=== PATIENT | male | born 1945 | race Caucasian/White ===

== ENCOUNTER 2017-05-07 09:22 | Observation (INO) | payer MEDICARE, OTHER ==
--- NOTE | 2017-05-07 09:31 | ED ---
General Adult HPI - General Stated complaint: near syncope Time Seen by Provider: 05/07/17 09:26 Source: RN notes reviewed, old records reviewed - History of Present Illness Initial comments: This is a 72-year-old male here for evaluation of near syncopal event. Patient had near syncope event just prior to arrival. No chest pain afresh breath or bowel pain no headache. No prior history of syncope. Eyes no medications. - Related Data Home Medications Medication Instructions Recorded Confirmed Cetirizine HCl [Zyrtec] 10 mg PO DAILY 05/07/17 05/07/17 Cholecalciferol [Vitamin D3] 1,000 unit PO DAILY 05/07/17 05/07/17 Glucosam/Crow-Msm1/C/Chase/Bosw 1 tab PO DAILY 05/07/17 05/07/17 [Glucosamine-Chondroitin Tablet] Multivit-Min/FA/Lycopen/Lutein 1 tab PO DAILY 05/07/17 05/07/17 [Centrum Silver Tablet] [place]-3 Fatty Acids/Fish Oil [Fish 1 cap PO DAILY 05/07/17 05/07/17 Oil 1,000 mg Capsule] Allergies Allergy/AdvReac Type Severity Reaction Status Date / Time No Known Allergies Allergy Verified 05/07/17 10:38 Review of Systems ROS Statement: Those systems with pertinent positive or pertinent negative responses have been documented in the HPI. ROS Other: All systems not noted in ROS Statement are negative. General Exam General appearance: alert, in no apparent distress Head exam: Present: atraumatic, normocephalic, normal inspection Eye exam: Present: normal appearance, PERRL, EOMI. Absent: scleral icterus, conjunctival injection, periorbital swelling ENT exam: Present: normal exam, mucous membranes moist Neck exam: Present: normal inspection. Absent: tenderness, meningismus, lymphadenopathy Respiratory exam: Present: normal lung sounds bilaterally. Absent: respiratory distress, wheezes, rales, rhonchi, stridor Cardiovascular Exam: Present: regular rate, normal rhythm, normal heart sounds. Absent: systolic murmur, diastolic murmur, rubs, gallop, clicks GI/Abdominal exam: Present: soft, normal bowel sounds. Absent: distended, tenderness, guarding, rebound, rigid Extremities exam: Present: normal inspection, full ROM, normal capillary refill. Absent: tenderness, pedal edema, joint swelling, calf tenderness Back exam: Present: normal inspection Neurological exam: Present: alert, oriented X3, CN II-XII intact Psychiatric exam: Present: normal affect, normal mood Skin exam: Present: warm, dry, intact, normal color. Absent: rash Course Vital Signs 05/07/17 05/07/17 05/07/17 09:30 09:47 10:00 Temperature 97.0 F L 97.0 F L 96.7 F L Pulse Rate 59 L 57 L 56 L Pulse Rate [ 57 L Right Supine Pulse Oximetery ] Respiratory 16 16 16 Rate Blood Pressure 132/74 132/74 118/73 O2 Sat by Pulse 98 98 98 Oximetry 05/07/17 05/07/17 10:52 12:12 Temperature 96.7 F L Pulse Rate 56 L 66 Pulse Rate [ Right Supine Pulse Oximetery ] Respiratory 16 18 Rate Blood Pressure 121/74 118/83 O2 Sat by Pulse 97 98 Oximetry - Reevaluation(s) Reevaluation #1: 05/07/17 12:16 Patient is without cervical will that here in the emergency room, still with episodic chest heaviness EKG Findings - EKG Comments: EKG Findings:: EKG shows sinus bradycardia rate of 57, MO 150, QRS 86, QTC 4: 30. EKG shows sinus bradycardia rate of 56, MO 136, QRS 80, QTC 422 Medical Decision Making - Medical Decision Making 70 formality for evaluation. Patient was given both a near syncopal event with diaphoresis and weakness, still of chest heaviness. Patient at this time is without significant chest pain no shortness of breath. CTA negative for PE, patient will be admitted for cardiac observation, EKG negative 2, negative troponin - Lab Data Result diagrams: 05/07/17 09:45 05/07/17 09:45 Lab Results 05/07/17 05/07/17 05/07/17 Range/Units 09:45 09:45 09:45 WBC 6.7 (3.8-10.6) k/uL RBC 4.64 (4.30-5.90) m/uL Hgb 14.4 (13.0-17.5) gm/dL Hct 41.8 (39.0-53.0) % MCV 90.1 (80.0-100.0) fL MCH 31.0 (25.0-35.0) pg MCHC 34.4 (31.0-37.0) g/dL RDW 13.5 (11.5-15.5) % Plt Count 185 (150-450) k/uL Neutrophils % 53 % Lymphocytes % 33 % Monocytes % 6 % Eosinophils % 4 % Basophils % 1 % Neutrophils # 3.6 (1.3-7.7) k/uL Lymphocytes # 2.2 (1.0-4.8) k/uL Monocytes # 0.4 (0-1.0) k/uL Eosinophils # 0.2 (0-0.7) k/uL Basophils # 0.1 (0-0.2) k/uL PT (9.0-12.0) sec INR (<1.1) APTT (22.0-30.0) sec D-Dimer (<0.60) mg/L FEU Sodium 140 (137-145) mmol/L Potassium 3.8 (3.5-5.1) mmol/L Chloride 106 (98-107) mmol/L Carbon Dioxide 24 (22-30) mmol/L Anion Gap 10 mmol/L BUN 18 (9-20) mg/dL Creatinine 0.73 (0.66-1.25) mg/dL Est GFR (MDRD) Af Amer >60 (>60 ml/min/1.73 sqM) Est GFR (MDRD) Non-Af >60 (>60 ml/min/1.73 sqM) Glucose 121 H (74-99) mg/dL Plasma Lactic Acid Angel (0.7-2.0) mmol/L Calcium 8.8 (8.4-10.2) mg/dL Phosphorus 3.4 (2.5-4.5) mg/dL Magnesium 1.9 (1.6-2.3) mg/dL Total Bilirubin 0.6 (0.2-1.3) mg/dL AST 31 (17-59) U/L ALT 36 (21-72) U/L Alkaline Phosphatase 62 (38-126) U/L Total Creatine Kinase 106 (55-170) U/L CK-MB (CK-2) 1.3 (0.0-2.4) ng/mL CK-MB (CK-2) Rel Index 1.2 Troponin I <0.012 (0.000-0.034) ng/mL Total Protein 6.6 (6.3-8.2) g/dL Albumin 3.9 (3.5-5.0) g/dL Urine Color Urine Appearance (Clear) Urine pH (5.0-8.0) Ur Specific [place] (1.001-1.035) Urine Protein (Negative) Urine Glucose (UA) (Negative) Urine Ketones (Negative) Urine Blood (Negative) Urine Nitrite (Negative) Urine Bilirubin (Negative) Urine Urobilinogen (<2.0) mg/dL Ur Leukocyte Esterase (Negative) 05/07/17 05/07/17 05/07/17 Range/Units 09:45 09:45 10:44 WBC (3.8-10.6) k/uL RBC (4.30-5.90) m/uL Hgb (13.0-17.5) gm/dL Hct (39.0-53.0) % MCV (80.0-100.0) fL MCH (25.0-35.0) pg MCHC (31.0-37.0) g/dL RDW (11.5-15.5) % Plt Count (150-450) k/uL Neutrophils % % Lymphocytes % % Monocytes % % Eosinophils % % Basophils % % Neutrophils # (1.3-7.7) k/uL Lymphocytes # (1.0-4.8) k/uL Monocytes # (0-1.0) k/uL Eosinophils # (0-0.7) k/uL Basophils # (0-0.2) k/uL PT 10.7 (9.0-12.0) sec INR 1.1 (<1.1) APTT 21.7 L (22.0-30.0) sec D-Dimer 0.87 H (<0.60) mg/L FEU Sodium (137-145) mmol/L Potassium (3.5-5.1) mmol/L Chloride (98-107) mmol/L Carbon Dioxide (22-30) mmol/L Anion Gap mmol/L BUN (9-20) mg/dL Creatinine (0.66-1.25) mg/dL Est GFR (MDRD) Af Amer (>60 ml/min/1.73 sqM) Est GFR (MDRD) Non-Af (>60 ml/min/1.73 sqM) Glucose (74-99) mg/dL Plasma Lactic Acid Angel 0.8 (0.7-2.0) mmol/L Calcium (8.4-10.2) mg/dL Phosphorus (2.5-4.5) mg/dL Magnesium (1.6-2.3) mg/dL Total Bilirubin (0.2-1.3) mg/dL AST (17-59) U/L ALT (21-72) U/L Alkaline Phosphatase (38-126) U/L Total Creatine Kinase (55-170) U/L CK-MB (CK-2) (0.0-2.4) ng/mL CK-MB (CK-2) Rel Index Troponin I (0.000-0.034) ng/mL Total Protein (6.3-8.2) g/dL Albumin (3.5-5.0) g/dL Urine Color Yellow Urine Appearance Clear (Clear) Urine pH 6.5 (5.0-8.0) Ur Specific [place] 1.017 (1.001-1.035) Urine Protein Negative (Negative) Urine Glucose (UA) Negative (Negative) Urine Ketones Negative (Negative) Urine Blood Negative (Negative) Urine Nitrite Negative (Negative) Urine Bilirubin Negative (Negative) Urine Urobilinogen <2.0 (<2.0) mg/dL Ur Leukocyte Esterase Negative (Negative) - Radiology Data Radiology results: report reviewed (Chest x-ray negative for acute disease, CTA negative for PE), image reviewed Disposition Clinical Impression: Chest pain, Near syncope Disposition: ADMITTED IP TO THIS HOSP Condition: Undetermined Referrals: Sae Roblero MD [Primary Care Provider] - 1-2 days
[2017-05-07 10:14] LABS: Basophils # (A) 0.1 k/uL (0-0.2); Basophils % (A) 1 %; CH 30.8; CHCM 34.4; Eosinophils # (A) 0.2 k/uL (0-0.7); Eosinophils % (A) 4 %; HCT 41.8 % (39.0-53.0); HDW 2.63; HGB 14.4 gm/dL (13.0-17.5); Luc # (Auto) 0.27; Luc % (Auto) 4; Lymphocytes # (A) 2.2 k/uL (1.0-4.8); Lymphocytes % (A) 33 %; MCHC 34.4 g/dL (31.0-37.0); MCV 90.1 fL (80.0-100.0); Mean Platelet Volume 7.1; Monocytes # (A) 0.4 k/uL (0-1.0); Monocytes % (A) 6 %; Neutrophils # (A) 3.6 k/uL (1.3-7.7); Neutrophils % (A) 53 %; RBC 4.64 m/uL (4.30-5.90); RDW 13.5 % (11.5-15.5); WBC 6.7 k/uL (3.8-10.6); WBC (Perox) 6.56
--- NOTE | 2017-05-07 10:21 | XR ---
EXAMINATION TYPE: XR chest 2V DATE OF EXAM: 05/07/2017 COMPARISON: Chest x-ray November 05, 2015 HISTORY: Weakness and chronic cough. TECHNIQUE: Frontal and lateral views of the chest are obtained. FINDINGS: There is left basilar linear atelectasis. Right lung is clear. No pleural effusion or pneu mothorax is seen bilaterally. The cardiac silhouette size is within normal limits. The osseous stru ctures are intact. IMPRESSION: New left basilar linear atelectasis lateral aspect.
[2017-05-07 10:23] LABS: ALT 36 U/L (21-72); AST 31 U/L (17-59); Alkaline Phosphatase 62 U/L (38-126); Anion Gap 10 mmol/L; Blood Urea Nitrogen 18 mg/dL (9-20); Calcium 8.8 mg/dL (8.4-10.2); Carbon Dioxide 24 mmol/L (22-30); Chloride 106 mmol/L (98-107); Glucose 121 mg/dL (74-99); Magnesium 1.9 mg/dL (1.6-2.3); Non-African American GFR(MDRD) >60 (>60 ml/min/1.73 sqM); Phosphorous 3.4 mg/dL (2.5-4.5); Potassium 3.8 mmol/L (3.5-5.1); Sodium 140 mmol/L (137-145); Total Bilirubin 0.6 mg/dL (0.2-1.3); Total Protein 6.6 g/dL (6.3-8.2)
[2017-05-07 10:34] LABS: INR 1.1 (<1.1); Prothrombin Time 10.7 sec (9.0-12.0)
[2017-05-07 10:37] LABS: Creatine Kinase 106 U/L (55-170)
[2017-05-07 10:38] LABS: Partial Thromboplastin Time 21.7 sec (22.0-30.0)
[2017-05-07 10:48] LABS: Creatine Kinase MB 1.3 ng/mL (0.0-2.4); Troponin I <0.012 ng/mL (0.000-0.034)
[2017-05-07 11:02] LABS: Appearance,Urine Clear (Clear); Bilirubin,Urine Negative (Negative); Glucose,Urine (UA) Negative (Negative); Ketones,Urine Negative (Negative); Leukocyte Esterase,Urine Negative (Negative); Nitrite,Urine Negative (Negative); PH, Urine 6.5 (5.0-8.0); Protein,Urine Negative (Negative); Specific Gravity,Urine 1.017 (1.001-1.035); UA Billing (MACRO vs. MICRO) CHEM; Urobilinogen,Urine <2.0 mg/dL (<2.0)
[2017-05-07] MEDS ORDERED: RX INFO: IV CONTRAST WAS GIVEN 1 EACH MISC MISCELLANE PRN (11:05)
--- NOTE | 2017-05-07 11:56 | CT ---
EXAMINATION TYPE: CT angio chest DATE OF EXAM: 05/07/2017 11:44 AM COMPARISON: NONE HISTORY: weakness and diaphoretic CT DLP: 619 mGycm Automated exposure control for dose reduction was used. CONTRAST: CTA scan of the thorax is performed with IV Contrast, patient injected with 82 mL of Omnipaque 350, p ulmonary embolism protocol. . FINDINGS: LUNGS: Subsegmental linear changes involving the lung suggestive of atelectasis. No localized evidenc e of pneumonia. No pneumothorax or pleural effusion. MEDIASTINUM: There is satisfactory enhancement of the pulmonary artery and its branches, there is no CT evidence for pulmonary embolism. There are no greater than 1 cm hilar or mediastinal lymph nodes. No pericardial effusion is seen. OTHER: Hypertrophic changes of the spine. IMPRESSION: NO EVIDENCE OF PULMONARY EMBOLISM.
[2017-05-07] MEDS ORDERED: HEPARIN SODIUM,PORCINE 5,000 UNIT/ML 1 ML VIAL IV ONE (12:13)
[2017-05-07] MEDS ORDERED: NITROGLYCERIN SL TABS 0.4 MG TAB SUBLINGUAL PRN (12:13)
[2017-05-07] MEDS ORDERED: HEPARIN SODIUM,PORCINE 5,000 UNIT/ML 1 ML VIAL IV PRN (12:13)
[2017-05-07] MEDS ORDERED: ASPIRIN 81 MG CHEW PO STA (12:13)
[2017-05-07] MEDS ORDERED: HEPARIN SODIUM,PORCINE/D5W PMX 25,000 UNIT in DEXTROSE/WATER 1 500ML.BAG IV SCH (12:15)
[2017-05-07 16:04] LABS: Creatine Kinase 137 U/L (55-170)
[2017-05-07 16:17] LABS: Creatine Kinase MB 2.2 ng/mL (0.0-2.4); Troponin I <0.012 ng/mL (0.000-0.034)
[2017-05-07 22:44] LABS: Creatine Kinase 142 U/L (55-170)
[2017-05-07 22:56] LABS: Troponin I <0.012 ng/mL (0.000-0.034)
[2017-05-08 03:24] LABS: Hemoglobin A1C 5.4 % (4.2-6.1)
[2017-05-08 03:48] LABS: Mean Platelet Volume 7.1
[2017-05-08 05:20] LABS: Cholesterol 164 mg/dL (<200); HDL Cholesterol 47 mg/dL (40-60); Triglycerides 64 mg/dL (<150)
--- NOTE | 2017-05-08 07:19 | HP ---
DATE OF ADMISSION: 05/07/2017 72-year-old white male with near syncopal events. He was found on the floor breaking out in sweat at home, unable to get up. No prior history of syncope. He says he does not take a whole lot of home medicines. He took vitamins. He says it could have been he had a low blood sugar, but did not check it. He takes Zyrtec 10 mg a day for allergies at home. ALLERGIES: No known drug allergies. REVIEW OF SYSTEMS: Fourteen-point review of systems negative except for as mentioned in HPI. PHYSICAL EXAM: VITAL SIGNS: Stable, afebrile. CARDIOVASCULAR: S1, S2. LUNGS: Transmitted upper airway sounds. HEMATOLOGIC: Negative Homans. PSYCHIATRIC: Fair mood and affect. NEUROLOGIC: Alert and oriented x3. Ophthalmologic: Pupils equal, round, react to light and accommodation. NEUROLOGIC: Alert and oriented x3. PSYCHIATRIC: Fair mood and affect. VASCULAR: Normal dorsalis pedis, posterior tibial, and radial pulse. Temperature 97, pulse is in the high 50s, respiratory rate 16 to 18, blood pressure 118-132/70's. O2 98% on room air. EKG shows sinus bradycardia. ASSESSMENT: Near syncopal with chest heaviness and diaphoresis and weakness, unclear etiology. CT was negative for pulmonary embolism. He was admitted for cardiac observation and cardiac enzymes are negative x2. PLAN: Admit the patient to the hospital. Rule out myocardial infarction. Possible stress test will be needed in the morning.
[2017-05-08] MEDS ORDERED: LORATADINE 10 MG TAB PO SCH (09:00)
[2017-05-08] MEDS ORDERED: ASPIRIN 325 MG TAB PO SCH (09:00)
[2017-05-08] MEDS ORDERED: ATORVASTATIN 80 MG TAB PO SCH (09:00)
--- NOTE | 2017-05-08 09:02 | CONS ---
DATE OF CONSULTATION: Mr. Clemente is a 72-year-old male with no prior documented history of coronary artery disease who presented with symptoms of dizziness and probable syncope. According to him, he was walking in his kitchen when he felt quite dizzy, went to the ground. He thinks he went out completely, but he is not quite sure, was diaphoretic, weak. He did not have any pounding in the chest. He felt nauseated. He had vague symptoms in the chest, but no clear angina. He is usually active physically without exertional chest discomfort. Hi breathing is stable when he is active. He has no palpitation. No prior syncope. He had a prior history of vertigo. He has no PND, orthopnea, or peripheral edema. He had no recent cardiac workup. His coronary risk factors are ( ) for hypertension, hyperlipidemia, or documented diabetes. He is a nonsmoker for many years. His medications include multivitamin, vitamin D, fish oil, glucosamine and Zyrtec. REVIEW OF SYSTEMS: RESPIRATORY SYSTEM: He has no recent wheezing. No cough. He has been told he has emphysema. GI SYSTEM: No recent GI bleeding. No peptic ulcer disease. SYSTEM: No dysuria or hematuria. NERVOUS SYSTEM: No stroke or seizure. PHYSICAL EXAMINATION: A 72-year-old male, alert, oriented, in no apparent distress. Blood pressure 113/60 with the heart rate in the 60s. HEAD: Normocephalic. EYES: Sclerae anicteric. NECK: Good upstroke. No bruit. No jugular venous distention. LUNGS: Clear to auscultation. HEART: Regular rate and rhythm. S1, S2, no S3 with systolic murmur heard at the base. ABDOMEN: Soft, nontender, positive bowel sounds. No organomegaly. EXTREMITIES: No edema. Intact distal pulses. LAB DATA: Troponin less than 0.012 for 3 samples. TSH 4.060. Potassium 3.8. BUN and creatinine 18 and 0.7. Hemoglobin of 14.4. D-dimer of 0.87. CT angiogram of the chest revealed no evidence of pulmonary embolism. His EKG revealed sinus mechanism, normal axis and intervals, rate of 57, no acute changes. IMPRESSION: 1. Symptoms of dizziness with presyncope and possible syncope of unclear etiology. Could be related to her orthostatic hypotension although the patient has been up for a while and walking. 2. Vague chest discomfort, atypical for ischemic heart disease. RECOMMENDATION: I will stop the heparin. I will obtain an echocardiogram and a stress echocardiogram. If there is no evidence of abnormality, then no further cardiac workup will be needed. Thank you for this consult. We will follow with you.
--- NOTE | 2017-05-08 11:08 | ECHOF ---
Referral Reason:dizziness MEASUREMENTS -------- HEIGHT: 182.9 cm WEIGHT: 92.5 kg BP: IVSd: 1.4 cm (0.6 - 1.1) LVIDd: 4.1 cm (3.9 - 5.3) LVPWd: 1.3 cm (0.6 - 1.1) IVSs: 1.7 cm LVIDs: 2.6 cm LVPWs: 1.5 cm Ao Diam: 3.5 cm (2.0 - 3.7) AV Cusp: 1.4 cm (1.5 - 2.6) LA Diam: 3.1 cm (2.7 - 3.8) MV EXCURSION: 13.536 mm (> 18.000) MV EF SLOPE: 78 mm/s (70 - 150) EPSS: 0.9 cm MV E Kamar: 0.52 m/s MV DecT: 303 ms MV A Kamar: 0.51 m/s MV E/A Ratio: 1.03 AR PHT: 657 ms RAP: 5.00 mmHg RVSP: 16.99 mmHg FINDINGS -------- Sinus rhythm. This was a technically good study. There is mild concentric left ventricular hypertrophy. Overall left ventricular systolic function is normal with, an EF between 55 - 60 %. The right ventricle is normal in size and function. The left atrium is normal in size. The right atrium is normal in size. Trace amount of aortic regurgitation. The mitral valve leaflets are mildly thickened. Mild mitral regurgitation is present. Mild tricuspid regurgitation present. The right ventricular systolic pressure, as measured by Doppler, is 16.99mmHg. Pulmonic valve appears structurally normal. The aortic root size is normal. Normal inferior vena cava with normal inspiratory collapse consistent with estimated right atrial pressure of 5 mmHg. The pericardium is normal. CONCLUSIONS -------- 1. Sinus rhythm. 2. Mild mitral regurgitation is present. 3. Mild tricuspid regurgitation present. 4. The right ventricular systolic pressure, as measured by Doppler, is 16.99mmHg. 5. Pulmonic valve appears structurally normal. 6. The aortic root size is normal. 7. Normal inferior vena cava with normal inspiratory collapse consistent with estimated right atrial pressure of 5 mmHg. 8. The pericardium is normal. 9. This was a technically good study. 10. There is mild concentric left ventricular hypertrophy. 11. Overall left ventricular systolic function is normal with, an EF between 55 - 60 %. 12. The right ventricle is normal in size and function. 13. The left atrium is normal in size. 14. The right atrium is normal in size. 15. Trace amount of aortic regurgitation. 16. The mitral valve leaflets are mildly thickened. VAT CLEANER: Jayshree Stinson RDCS
[2017-05-08 12:45] VITALS: BP 116/69; PULSE 77; RESP 16; TEMP 97.7
--- NOTE | 2017-05-08 14:51 | P.DS ---
Providers Date of admission: 05/07/17 12:13 Expected date of discharge: 05/08/17 Attending physician: Sae Wellington Consults: 05/07/17 12:13 Consult Physician Urgent Consulting Provider: Thomas Mercer Consult Reason/Comments: cp Do you want consulting provider notified?: Yes Primary care physician: [facility] Course: 72-year-old male who presented on the day of admission to the emergency room with a dizzy sensation. Patient stated that he was walking into the kitchen felt quite dizzy and went to the ground. He thinks he passed out is not sure. He felt diaphoretic. Patient does not have any chest discomfort. He did feel nauseated. Subsequently the patient did present to the emergency room to be evaluated for the above-mentioned symptoms. Troponin 3 were negative. EKG showed no acute changes. Patient had vague chest discomfort which was atypical for ischemic heart disease. Patient did undergo a dobutamine stress echo. Cardiology reviewed echo indicating there were no acute findings. Patient did have a CAT scan of the chest there was no evidence of a pulmonary emboli. There were no further episodes. Patient's symptoms of dizziness with presyncopal possible syncopal episode could be related to orthostasis hypotension. Per there were no further episodes patient was felt to be clinically stable and appropriate proceed with discharge to home. Impression discharge diagnosis Dobutamine stress echo no acute findings Present on admission syncopal episode dizziness lightheadedness unclear etiology Present on admission vague chest discomfort atypical for ischemic heart disease cardiac enzymes negative 3 sets History of hypertension Echocardiogram May 08 left contiguous systolic function normal with an EF between 55 and 60% Hyperlipidemia Elevated d-dimer with a negative CAT scan of the chest showing no evidence of a pulmonary emboli The above dictated assessment and findings were discussed with dr wellington . Impression and the plan of care have been dictated as directed. Seema Hines nurse practitioner acting as a scribe for dr wellington Patient Condition at Discharge: Undetermined Plan - Discharge Summary New Discharge Prescriptions: New Atorvastatin [Lipitor] 80 mg PO DAILY #30 tab Continue Cholecalciferol [Vitamin D3] 1,000 unit PO DAILY [place]-3 Fatty Acids/Fish Oil [Fish Oil 1,000 mg Capsule] 1 cap PO DAILY Glucosam/Crow-Msm1/C/Chase/Bosw [Glucosamine-Chondroitin Tablet] 1 tab PO DAILY Cetirizine HCl [Zyrtec] 10 mg PO DAILY Multivit-Min/FA/Lycopen/Lutein [Centrum Silver Tablet] 1 tab PO DAILY Discharge Medication List Cetirizine HCl [Zyrtec] 10 mg PO DAILY 05/07/17 [History] Cholecalciferol [Vitamin D3] 1,000 unit PO DAILY 05/07/17 [History] Glucosam/Crow-Msm1/C/Chase/Bosw [Glucosamine-Chondroitin Tablet] 1 tab PO DAILY 05/07/17 [History] Multivit-Min/FA/Lycopen/Lutein [Centrum Silver Tablet] 1 tab PO DAILY 05/07/17 [ History] [place]-3 Fatty Acids/Fish Oil [Fish Oil 1,000 mg Capsule] 1 cap PO DAILY [History] Atorvastatin [Lipitor] 80 mg PO DAILY #30 tab 05/08/17 [Rx] Follow up Appointment(s)/Referral(s): Sae Wellington MD [Primary Care Provider] - 1-2 days Thomas Mercer MD [STAFF PHYSICIAN] - 1 Week Discharge Disposition: HOME SELF-CARE
--- NOTE | 2017-05-08 15:15 | ECHOS ---
DATE OF SERVICE: 05/08/2017 AGE: 72Y SEX: M HT: WT: 204 lbs. Protocol [place]: X Others: Stress Echo Stage: II Dur. of Exercise: 5 minutes *Heart Rate Blood Pressure *Rest: 71 Rest: 108/56 * *Max. Achieved: 136 Maximum BP: 154/66 85% PMHR: 124 100% PMHR: 146 *METS: 6.8 INDICATIONS: Chest pain. MEDICATIONS: Patient was exercised for a total period of 5 minutes. A peak heart rate of 136 was achieved. Maximum blood pressure of 154/66 mmHg was noted. Resting EKG shows normal sinus rhythm with normal [place] interval and QRS duration and normal ST-T waves. Occasional PVCs were noted. No ST segment depression suggestive of ischemia is noted. The baseline echocardiographic images reveal normal left ventricular chamber size with normal left ventricular systolic function. In the immediate postexercise period, normal increase in the wall thickness and contractility is noted. FINAL IMPRESSION: This stress echocardiographic study is negative for stress-induced ischemia. EKG portion of the stress test is not suggestive of ischemia. Intermittent PVCs are noted.
== END 2017-05-08 15:15 | disposition home or self-care (01) ==
LOC: EC 09:22 → 3OBS 12:13
PROVIDERS: ADMIT Family Medicine; ATTEND Family Medicine
DX: R55 Syncope and collapse (principal); Z79.899 Other long term (current) drug therapy; R00.1 Bradycardia, unspecified; R53.1 Weakness; R61 Generalized hyperhidrosis; R42 Dizziness and giddiness; I10 Essential (primary) hypertension; E78.5 Hyperlipidemia, unspecified; R11.0 Nausea; R07.89 Other chest pain
CPT/HCPCS: 96365; 96366 ×2; 96376 ×2; 99285; 36415; 93005; 93017; 93306; 85379; 80061; 80053; 84443; 82533; 83036; 82550; 82553; 83605; 83735; 84100; 84484; 85025; 85049; 85610; 85730 ×2; 81003; 87086; 71020; 71275; G0378 ×2; C8928; J1644 ×2; Q9967; Q9957; 93350